=== PATIENT | male | born 1980 | race Caucasian/White ===

== ENCOUNTER 2020-09-06 10:15 | Outpatient (REF) | payer BC, SELFPAY ==
[2020-09-06 10:30] LABS: MANUAL DIFF FLAG NO
[2020-09-06 10:55] LABS: Basophils Absolute Auto 0.1 X10*3/uL (0.0-0.2); Basophils Percent Auto 0.7 % (0-2); Eosinophils Absolute Auto 0.2 X10*3/uL (0.0-0.4); Eosinophils Percent Auto 1.9 % (0-4); Hematocrit 42.6 % (42-52); Hemoglobin 14.6 g/dl (14.0-18.0); Imm Gran Abs Auto 0.08 X10*3/uL (0.00-0.03); Imm Gran Pct Auto 0.7 % (0.0-0.4); Lymphocytes Absolute Auto 2.8 X10*3/uL (1.2-4.9); Lymphocytes Percent Auto 24.1 % (20-40); Mean Corpuscular HGB Conc 34.3 g/dl (31.0-36.0); Mean Corpuscular Hemoglobin 32.4 pg (27.0-33.0); Mean Corpuscular Volume 94.7 fL (80-98); Mean Platelet Volume 10.2 fL (9.4-12.4); Monocytes Percent Auto 8.7 % (2-11); Neutrophils Absolute Auto 7.5 X10*3/uL (2.0-8.3); Neutrophils Percent Auto 63.9 % (45-73); Platelet Count 309 X10*3/uL (160-400); Red Cell Distribution Width 12.3 % (11.0-16.0); White Blood Count 11.7 X10*3/uL (4.8-10.8)
[2020-09-06 11:09] LABS: Glucose Urine UA NEG (NEG); Leukocyte Esterase Urine NEG (NEG); Nitrite Urine NEG (NEG); PH 5.5 (5.0-8.0); Specific Gravity - Urine >= 1.030 (1.005-1.025); Urine Blood NEG (NEG); Urine Ketones NEG (NEG); Urine Protein NEG (NEG-TRACE)
[2020-09-06 11:14] LABS: Appearance Urine CLEAR; Color Urine YELLOW
[2020-09-06 11:25] LABS: Alanine Aminotransferase 90 U/L (0-40); Albumin Level 4.6 g/dL (3.5-5.0); Alkaline Phosphatase 82 U/L (39-117); Anion Gap 14 (12-20); Aspartate Amino Transferase 41 U/L (5-37); Bilirubin Total 0.5 mg/dL (0.0-1.0); Blood Urea Nitrogen 17 mg/dL (9-16); Carbon Dioxide 27 mmol/L (22-29); Chloride 103 mmol/L (96-108); Cholesterol 262 mg/dL; Estimated Glomerular Filt Rate > 60; Glucose Fasting 94 mg/dL (60-99); HDL Cholesterol 48 mg/dL; LDL Cholesterol Calculated 165 mg/dl; Potassium 4.1 mmol/L (3.3-5.1); Sodium 140 mmol/L (135-145); Total Protein 7.6 g/dL (6.5-8.0); Triglycerides 247 mg/dL
== END 2020-09-06 10:16 | disposition home or self-care (01) ==
LOC: HO.LNP 10:15
PROVIDERS: Visit Provider Internal Medicine
DX: Z00.00 Encounter for general adult medical examination without abnormal findings (principal); E78.00 Pure hypercholesterolemia, unspecified
CPT/HCPCS: 80053; 80061; 81003; 85025

== ENCOUNTER 2020-10-14 13:54 | Outpatient (REF) | payer BC, SELFPAY ==
[2020-10-14 14:01] LABS: MANUAL DIFF FLAG NO
[2020-10-14 14:05] LABS: Basophils Absolute Auto 0.1 X10*3/uL (0.0-0.2); Basophils Percent Auto 0.7 % (0-2); Eosinophils Absolute Auto 0.3 X10*3/uL (0.0-0.4); Eosinophils Percent Auto 2.5 % (0-4); Hematocrit 41.9 % (42-52); Hemoglobin 14.2 g/dl (14.0-18.0); Imm Gran Abs Auto 0.05 X10*3/uL (0.00-0.03); Imm Gran Pct Auto 0.5 % (0.0-0.4); Lymphocytes Absolute Auto 2.8 X10*3/uL (1.2-4.9); Lymphocytes Percent Auto 26.9 % (20-40); Mean Corpuscular HGB Conc 33.9 g/dl (31.0-36.0); Mean Corpuscular Hemoglobin 32.5 pg (27.0-33.0); Mean Corpuscular Volume 95.9 fL (80-98); Mean Platelet Volume 10.3 fL (9.4-12.4); Monocytes Absolute Auto 1.1 X10*3/uL (0.1-1.2); Monocytes Percent Auto 10.6 % (2-11); Neutrophils Percent Auto 58.8 % (45-73); Platelet Count 289 X10*3/uL (160-400); Red Blood Count 4.37 X10*6/uL (4.60-5.80); Red Cell Distribution Width 12.2 % (11.0-16.0); White Blood Count 10.2 X10*3/uL (4.8-10.8)
== END 2020-10-14 13:55 | disposition home or self-care (01) ==
LOC: HO.LNP 13:54
PROVIDERS: Visit Provider Internal Medicine
DX: D72.829 Elevated white blood cell count, unspecified (principal)
CPT/HCPCS: 85025

== ENCOUNTER 2021-09-18 11:06 | Outpatient (REF) | payer BC, SELFPAY ==
[2021-09-18 11:10] LABS: MANUAL DIFF FLAG NO
[2021-09-18 11:48] LABS: Appearance Urine CLEAR; Color Urine YELLOW; Glucose Urine UA NEG (NEG); Leukocyte Esterase Urine NEG (NEG); Nitrite Urine NEG (NEG); PH 5.5 (5.0-8.0); Urine Blood NEG (NEG); Urine Ketones NEG (NEG); Urine Protein NEG (NEG-TRACE)
[2021-09-18 11:55] LABS: Basophils Absolute Auto 0.1 X10*3/uL (0.0-0.2); Basophils Percent Auto 0.8 % (0-2); Eosinophils Absolute Auto 0.2 X10*3/uL (0.0-0.4); Eosinophils Percent Auto 1.7 % (0-4); Hematocrit 44.9 % (42.0-52.0); Imm Gran Abs Auto 0.04 X10*3/uL (0.00-0.03); Imm Gran Pct Auto 0.3 % (0.0-0.4); Lymphocytes Absolute Auto 3.5 X10*3/uL (1.2-4.9); Lymphocytes Percent Auto 29.8 % (20-40); Mean Corpuscular HGB Conc 33.4 g/dl (31.0-36.0); Mean Corpuscular Hemoglobin 32.3 pg (27.0-33.0); Mean Corpuscular Volume 96.8 fL (80.0-98.0); Mean Platelet Volume 10.2 fL (9.4-12.4); Monocytes Percent Auto 8.7 % (2-11); Neutrophils Absolute Auto 6.9 x10*3/uL (2.0-8.3); Neutrophils Percent Auto 58.7 % (45-73); Platelet Count 329 X10*3/uL (160-400); Red Blood Count 4.64 X10*6/uL (4.60-5.80); Red Cell Distribution Width 12.6 % (11.0-16.0); White Blood Count 11.8 X10*3/uL (4.8-10.8)
[2021-09-18 12:20] LABS: PSA,Total (Free>4and<10) 0.37 ng/mL (0.00-4.00)
[2021-09-18 12:26] LABS: Alanine Aminotransferase 55 U/L (0-40); Albumin Level 4.6 g/dL (3.5-5.0); Alkaline Phosphatase 82 U/L (39-117); Anion Gap 16 (12-20); Aspartate Amino Transferase 26 U/L (5-37); Bilirubin Total 0.7 mg/dL (0.0-1.0); Blood Urea Nitrogen 15 mg/dL (9-16); Calcium 10.6 mg/dL (8.4-10.2); Carbon Dioxide 23 mmol/L (22-29); Chloride 103 mmol/L (96-108); Cholesterol 243 mg/dL; Estimated Glomerular Filt Rate > 60; Glucose Fasting 91 mg/dL (60-99); HDL Cholesterol 42 mg/dL; LDL Cholesterol Calculated 155 mg/dl; Potassium 4.4 mmol/L (3.3-5.1); Sodium 138 mmol/L (135-145); Total Protein 7.7 g/dL (6.5-8.0); Triglycerides 233 mg/dL
== END 2021-09-18 11:07 | disposition home or self-care (01) ==
LOC: HO.LNP 11:06
PROVIDERS: PCP Internal Medicine; Visit Provider Internal Medicine
DX: Z00.00 Encounter for general adult medical examination without abnormal findings (principal); E78.00 Pure hypercholesterolemia, unspecified; D72.829 Elevated white blood cell count, unspecified; Z12.5 Encounter for screening for malignant neoplasm of prostate
CPT/HCPCS: 80053; 80061; 81003; 84153; 85025

== ENCOUNTER 2021-09-25 15:34 | Outpatient (REF) | payer BC, SELFPAY ==
[2021-09-25 15:45] LABS: Calcium 9.9 mg/dL (8.4-10.2)
== END 2021-09-25 15:35 | disposition home or self-care (01) ==
LOC: HO.LNP 15:34
PROVIDERS: Visit Provider Internal Medicine
DX: E83.52 Hypercalcemia (principal)
CPT/HCPCS: 82310

== ENCOUNTER 2022-09-25 10:57 | Outpatient (REF) | payer BC, SELFPAY ==
[2022-09-25 11:01] LABS: MANUAL DIFF FLAG NO
[2022-09-25 11:16] LABS: Basophils Absolute Auto 0.1 X10*3/uL (0.0-0.2); Basophils Percent Auto 0.8 % (0-2); Eosinophils Absolute Auto 0.2 X10*3/uL (0.0-0.4); Eosinophils Percent Auto 2.2 % (0-4); Hematocrit 42.7 % (42.0-52.0); Hemoglobin 14.6 g/dl (14.0-18.0); Imm Gran Abs Auto 0.04 X10*3/uL (0.00-0.03); Imm Gran Pct Auto 0.4 % (0.0-0.4); Lymphocytes Absolute Auto 3.3 X10*3/uL (1.2-4.9); Lymphocytes Percent Auto 34.2 % (20-40); Mean Corpuscular HGB Conc 34.2 g/dl (31.0-36.0); Mean Corpuscular Hemoglobin 31.4 pg (27.0-33.0); Mean Corpuscular Volume 91.8 fL (80.0-98.0); Mean Platelet Volume 9.9 fL (9.4-12.4); Monocytes Percent Auto 10.6 % (2-11); Neutrophils Percent Auto 51.8 % (45-73); Platelet Count 316 X10*3/uL (160-400); Red Blood Count 4.65 X10*6/uL (4.60-5.80); Red Cell Distribution Width 12.3 % (11.0-16.0); White Blood Count 9.6 X10*3/uL (4.8-10.8)
[2022-09-25 11:17] LABS: Appearance Urine Clear; Color Urine Yellow; Glucose Urine UA Negative (Negative); Leukocyte Esterase Urine Negative (Negative); Nitrite Urine Negative (Negative); PH 5.5 (5.0-9.0); Urine Blood Negative (Negative); Urine Ketones Negative (Negative); Urine Protein Negative (Neg-Trace)
[2022-09-25 11:23] LABS: Bacteria Urine None Seen (None Seen); Hyaline Casts Urine 0-2 /LPF (0-2); RBC Urine 0-2 /HPF (0-2); Squamous Epithelial Cell Urine 0-2 /HPF (0-2); WBC Urine 0-5 /HPF (0-5)
[2022-09-25 12:07] LABS: Alanine Aminotransferase 101 U/L (0-40); Albumin Level 4.6 g/dL (3.5-5.0); Alkaline Phosphatase 87 U/L (39-117); Anion Gap 14 (12-20); Aspartate Amino Transferase 48 U/L (5-37); Bilirubin Total 0.7 mg/dL (0.0-1.0); Blood Urea Nitrogen 13 mg/dL (9-16); Calcium 9.8 mg/dL (8.4-10.2); Carbon Dioxide 28 mmol/L (22-29); Chloride 102 mmol/L (96-108); Cholesterol 265 mg/dL; Estimated Glomerular Filt Rate > 60; Glucose Fasting 97 mg/dL (60-99); HDL Cholesterol 42 mg/dL; LDL Cholesterol Calculated 173 mg/dl; Potassium 4.3 mmol/L (3.3-5.1); Sodium 140 mmol/L (135-145); Total Protein 7.5 g/dL (6.5-8.0); Triglycerides 254 mg/dL
[2022-09-25 12:22] LABS: PSA,Total (Free>4and<10) 0.35 ng/mL (0.00-4.00)
== END 2022-09-25 10:58 | disposition home or self-care (01) ==
LOC: HO.LNP 10:57
PROVIDERS: Visit Provider Internal Medicine
DX: Z00.00 Encounter for general adult medical examination without abnormal findings (principal); Z12.5 Encounter for screening for malignant neoplasm of prostate; E78.00 Pure hypercholesterolemia, unspecified; D72.829 Elevated white blood cell count, unspecified
CPT/HCPCS: 80053; 80061; 81001; 84153; 85025

== ENCOUNTER 2023-04-15 10:57 | Outpatient (REF) | payer BC, SELFPAY ==
[2023-04-15 12:36] LABS: Alanine Aminotransferase 43 U/L (0-40); Albumin Level 4.5 g/dL (3.5-5.0); Alkaline Phosphatase 86 U/L (39-117); Aspartate Amino Transferase 22 U/L (5-37); Bilirubin Direct 0.2 mg/dL (0.0-0.5); Bilirubin Total 0.6 mg/dL (0.0-1.0); Cholesterol 242 mg/dL (<200); HDL Cholesterol 43 mg/dL (>40); LDL Cholesterol Calculated 155 mg/dL (<100); Total Protein 7.5 g/dL (6.5-8.0); Triglycerides 223 mg/dL (<150)
== END 2023-04-15 10:58 | disposition home or self-care (01) ==
LOC: HO.LNP 10:57
PROVIDERS: Visit Provider Internal Medicine
DX: E78.00 Pure hypercholesterolemia, unspecified (principal); R79.89 Other specified abnormal findings of blood chemistry
CPT/HCPCS: 80061; 80076

== ENCOUNTER 2023-09-27 11:09 | Outpatient (REF) | payer BC, SELFPAY ==
[2023-09-27 11:18] LABS: MANUAL DIFF FLAG NO
[2023-09-27 12:16] LABS: Basophils Absolute Auto 0.1 X10*3/uL (0.0-0.2); Basophils Percent Auto 0.9 % (0-2); Eosinophils Absolute Auto 0.2 X10*3/uL (0.0-0.4); Eosinophils Percent Auto 2.3 % (0-4); Hematocrit 42.4 % (42.0-52.0); Hemoglobin 14.4 g/dl (14.0-18.0); Imm Gran Abs Auto 0.03 X10*3/uL (0.00-0.03); Imm Gran Pct Auto 0.3 % (0.0-0.4); Lymphocytes Absolute Auto 3.8 X10*3/uL (1.2-4.9); Lymphocytes Percent Auto 37.5 % (20-40); Mean Corpuscular Hemoglobin 32.4 pg (27.0-33.0); Mean Corpuscular Volume 95.3 fL (80.0-98.0); Mean Platelet Volume 9.8 fL (9.4-12.4); Monocytes Percent Auto 9.7 % (2-11); Neutrophils Percent Auto 49.3 % (45-73); Platelet Count 292 X10*3/uL (160-400); Red Blood Count 4.45 X10*6/uL (4.60-5.80); Red Cell Distribution Width 12.2 % (11.0-16.0)
[2023-09-27 12:18] LABS: Appearance Urine Clear; Color Urine Yellow; Glucose Urine UA Negative (Negative); Leukocyte Esterase Urine Negative (Negative); Nitrite Urine Negative (Negative); Specific Gravity - Urine 1.025 (1.005-1.025); Urine Blood Negative (Negative); Urine Ketones Negative (Negative); Urine Protein Negative (Neg-Trace)
[2023-09-27 12:22] LABS: Bacteria Urine None Seen (None Seen); Hyaline Casts Urine 0-2 /LPF (0-2); RBC Urine 0-2 /HPF (0-2); Squamous Epithelial Cell Urine 0-2 /HPF (0-2); WBC Urine 0-5 /HPF (0-5)
[2023-09-27 12:30] LABS: Alanine Aminotransferase 48 U/L (0-40); Albumin Level 4.4 g/dL (3.5-5.0); Alkaline Phosphatase 79 U/L (39-117); Anion Gap 10 (12-20); Aspartate Amino Transferase 29 U/L (5-37); Bilirubin Total 0.6 mg/dL (0.0-1.0); Blood Urea Nitrogen 13 mg/dL (9-16); Calcium 9.5 mg/dL (8.4-10.2); Carbon Dioxide 27 mmol/L (22-29); Chloride 105 mmol/L (96-108); Cholesterol 242 mg/dL (<200); Estimated Glomerular Filt Rate > 60; Glucose Fasting 84 mg/dL (60-99); HDL Cholesterol 41 mg/dL (>40); LDL Cholesterol Calculated 165 mg/dL (<100); Potassium 4.2 mmol/L (3.3-5.1); Sodium 138 mmol/L (135-145); Total Protein 7.5 g/dL (6.5-8.0); Triglycerides 183 mg/dL (<150)
[2023-09-27 12:47] LABS: PSA,Total (Free>4and<10) 0.35 ng/mL (0.00-4.00)
== END 2023-09-27 11:10 | disposition home or self-care (01) ==
LOC: HO.LNP 11:09
PROVIDERS: Visit Provider Internal Medicine
DX: Z00.00 Encounter for general adult medical examination without abnormal findings (principal); Z12.5 Encounter for screening for malignant neoplasm of prostate; E78.00 Pure hypercholesterolemia, unspecified; D72.829 Elevated white blood cell count, unspecified
CPT/HCPCS: 80053; 80061; 81001; 84153; 85025

== ENCOUNTER 2024-04-28 15:55 | Outpatient (REF) | payer BC, SELFPAY ==
[2024-04-28 21:22] LABS: Albumin Level 4.6 g/dL (3.5-5.0); Alkaline Phosphatase 79 U/L (39-117); Bilirubin Direct 0.2 mg/dL (0.0-0.5); Bilirubin Total 0.6 mg/dL (0.0-1.0); Cholesterol 215 mg/dL (<200); HDL Cholesterol 49 mg/dL (>40); LDL Cholesterol Calculated 130 mg/dL (<100); Total Protein 7.6 g/dL (6.5-8.0); Triglycerides 181 mg/dL (<150)
[2024-04-28 22:42] LABS: Alanine Aminotransferase 54 U/L (0-40); Aspartate Amino Transferase 36 U/L (5-37)
== END 2024-04-28 15:56 | disposition home or self-care (01) ==
LOC: HO.LNP 15:55
PROVIDERS: Visit Provider Internal Medicine
DX: E78.00 Pure hypercholesterolemia, unspecified (principal)
CPT/HCPCS: 80061; 80076

== ENCOUNTER 2024-10-23 09:37 | Outpatient (REF) | payer BC, SELFPAY ==
[2024-10-23 09:43] LABS: MANUAL DIFF FLAG NO
[2024-10-23 10:07] LABS: Basophils Absolute Auto 0.1 X10*3/uL (0.0-0.2); Basophils Percent Auto 0.9 % (0-2); Eosinophils Absolute Auto 0.2 X10*3/uL (0.0-0.4); Eosinophils Percent Auto 2.2 % (0-4); Imm Gran Abs Auto 0.03 X10*3/uL (0.00-0.03); Imm Gran Pct Auto 0.3 % (0.0-0.4); Lymphocytes Absolute Auto 3.2 X10*3/uL (1.2-4.9); Lymphocytes Percent Auto 35.5 % (20-40); Mean Corpuscular Volume 91.5 fL (80.0-98.0); Mean Platelet Volume 9.6 fL (9.4-12.4); Monocytes Absolute Auto 0.9 X10*3/uL (0.1-1.2); Monocytes Percent Auto 9.6 % (2-11); Neutrophils Absolute Auto 4.6 x10*3/uL (2.0-8.3); Neutrophils Percent Auto 51.5 % (45-73); Platelet Count 303 X10*3/uL (160-400); Red Blood Count 4.37 X10*6/uL (4.60-5.80); Red Cell Distribution Width 12.3 % (11.0-16.0)
[2024-10-23 10:35] LABS: Alanine Aminotransferase 64 U/L (0-40); Albumin Level 4.5 g/dL (3.5-5.0); Alkaline Phosphatase 69 U/L (39-117); Anion Gap 11 (12-20); Aspartate Amino Transferase 38 U/L (5-37); Bilirubin Total 0.7 mg/dL (0.0-1.0); Blood Urea Nitrogen 16 mg/dL (9-16); Calcium 9.7 mg/dL (8.4-10.2); Carbon Dioxide 26 mmol/L (22-29); Chloride 105 mmol/L (96-108); Cholesterol 245 mg/dL (<200); Estimated Glomerular Filt Rate > 60; Glucose Fasting 91 mg/dL (60-99); HDL Cholesterol 47 mg/dL (>40); LDL Cholesterol Calculated 172 mg/dL (<100); Sodium 138 mmol/L (135-145); Total Protein 7.6 g/dL (6.5-8.0); Triglycerides 130 mg/dL (<150)
[2024-10-23 10:38] LABS: PSA,Total (Free>4and<10) 0.46 ng/mL (0.00-4.00)
[2024-10-23 10:54] LABS: Appearance Urine Clear; Color Urine Yellow; Glucose Urine UA Negative (Negative); Leukocyte Esterase Urine Negative (Negative); Nitrite Urine Negative (Negative); PH 5.5 (5.0-9.0); Urine Blood Negative (Negative); Urine Ketones Negative (Negative); Urine Protein Negative (Neg-Trace)
[2024-10-23 11:05] LABS: Bacteria Urine None Seen (None Seen); Hyaline Casts Urine 0-2 /LPF (0-2); RBC Urine 0-2 /HPF (0-2); Squamous Epithelial Cell Urine 0-2 /HPF (0-2); WBC Urine 0-5 /HPF (0-5)
== END 2024-10-23 09:38 | disposition home or self-care (01) ==
LOC: HO.LNP 09:37
PROVIDERS: Visit Provider Internal Medicine
DX: Z00.00 Encounter for general adult medical examination without abnormal findings (principal); E78.00 Pure hypercholesterolemia, unspecified; D72.829 Elevated white blood cell count, unspecified; E83.52 Hypercalcemia; Z12.5 Encounter for screening for malignant neoplasm of prostate
CPT/HCPCS: 80053; 80061; 81001; 84153; 85025

== ENCOUNTER 2024-12-24 15:00 | Outpatient (REF) | payer BC, SELFPAY ==
--- OUTSIDE RECORDS SUMMARY | 2024-12-24 10:30 | XMS_ITS ---
Author Organization Bhaskar Lennon MD Address [address] [place], [place] [id number] Care Team Providers Care Section Maintainer Name Role Phone Bhaskar Lennon Primary Care Provider [phone] Allergies No Known Allergies Results Component Value Reference Range Notes TSH reflex Free T4 (Not yet reviewed by provider) Interpretation: Performing Lab:[facility], [address] [place] [phone] Notes/Report: TSH reflex Free T4 1.57 0.32-4.0 uIU/mL Occult Blood, Stool, Guaiac Reviewed date:12/24/2024 03:31:08 PM Interpretation:Negative Performing Lab: Notes/Report: Negative Occult Blood, Stool, Guaiac Neg REASON FOR VISIT annual visit Social History [...] Location Date Provider Diagnosis Bhaskar Lennon MD [address] [place] [address] [place] [phone] 12/24/2024 Bhaskar Lennon Annual physical exam Z00.00 ; Hair loss L65.9 ; Pure hypercholesterolemia E78.00 ; Colon cancer screening Z12.11 and Depression screening Z13.31 Assessments Encounter Date Diagnosis (ICD Code) Assessment Notes Treatment Notes Treatment Clinical Notes Section Notes 12/24/2024 Annual physical exam (ICD-10 - Z00.00) labs reviewed and discussed with patient, order given to the patient to go to [facility] [place] 12/24/2024 Hair loss (ICD-10 - L65.9) pending labs 12/24/2024 Pure hypercholesterolemia (ICD-10 - E78.00) stable, will continue current regiment 12/24/2024 Colon cancer screeni ng (ICD-10 - Z12.11) guaiac negative 12/24/2024 Depression screening (ICD-10 - Z13.31) negative screen Plan Of Treatment Treatment Notes Assessment Notes Annual physical exam labs reviewed and d iscussed with patient, order given to the patient to go to [facility] [place] Hair loss pending labs Pure hypercholesterolemia stable, will c ontinue current regiment Colon cancer screening guaiac negative Depression screening negative screen Pending Test Test Name Order Date TSH reflex Free T4 12/24/2024 Future Test Test Name Order Date Lipid Panel 06/25/2025 Next Appt Details Follow Up: 6 Months, Reason: Provider Name:Bhaskar moise, 06/22/2025 07:00:00 AM, [address] [place] [address], [address], [phone], Provider Name:Bhaskar moise, 06/29/2025 02:00:00 PM, [address] [place] [address], [address], [phone], Provider Name:Bhaskar Ruth ier, 12/23/2025 07:15:00 AM, [address], [address], [place], [place], [phone], Provider Name:Bhaskar Ruth ier, 12/30/2025 02:30:00 PM, [address], [address], [place], [place], [phone], Progress Notes * Willis MARISCALinDOB: 1 (44 yo M)Acc No.[id number]:12/24/2024 Progress Notes Patient: Layo BELL Provider: Heladio Lennon MD :1980 A ge:44 Y S ex:Male Date:12/24/2024 Address:[address] [place], [place] [id number] Subjective: * Chief Complaints: * 1 . Annual visit. * HPI: D epression Screening: PHQ-9 L [...] d enies. H eadache?denies. * Medical History: M edical History Verified. * Family History: F ather: alive 70 yrs. M other: 55 yrs. mother, Denies mental health/substance abuse family history, Denies mental health/substance abuse family history, Denies mental health/substance abuse family history, No pertinent family medical history. * Social History: T obacco Use: T obacco Use/Smoking P atient is a n onsmoker, A dditional Findings: [...] * Medications: N one * Allergies: N .K.D.A. Objective: * Vitals: H t: 69.50, Wt: [...] Auto 0.000 0.0-0.012 - X10*3/uL L ab:Comprehensive [place]. Panel Fast (Order Date - 10/23/2024) (Collection [...] mg/dL Urine Blood Negative Negative - Specific [place] - Urine 1.020 1.005-1.025 - Urine Protein [...] Counseling: C are goal follow-up plan: C ounseling for abnormal BMI provided?Yes, A jhonny Normal BMI Follow-up G heidi encouragement to exercise. * Follow Up: 6 Months * * The named appointment provid er may or may not be the originator of this progress note, and it is not deemed complete until electronically signed by the appointment provider. Sign off status: Pending * Provider: Heladio Lennon MD Date: 0 12/24/2024 Generated for Santosh chaves/Charan/eTransmitting on: 0 12/24/2024 06:14 PM EDT History and Physical Notes * HPI (History [...]
[2024-12-24 17:13] LABS: TSH reflex Free T4 1.57 uIU/mL (0.32-4.0)
== END 2024-12-24 15:01 | disposition home or self-care (01) ==
LOC: HO.LAB 15:00
PROVIDERS: PCP Internal Medicine; Visit Provider Internal Medicine
DX: L65.9 Nonscarring hair loss, unspecified (principal)
CPT/HCPCS: 36415; 84443

== ENCOUNTER 2025-06-22 10:44 | Outpatient (REF) | payer BC, SELFPAY ==
--- OUTSIDE RECORDS SUMMARY | 2024-04-28 02:00 | XMS_ITS ---
Author Organization Bhaskar Lennon MD Address [address] [place], [place] [id number] Care Team Providers Care Production Control Analyst Name Role Phone Bhaskar Lennon Primary Care Provider [phone] Results Component Value Reference Range Notes Liver Panel Reviewed date:04/29/2024 05:36:28 PM Interpretation: Performing Lab:[facility], [address] [place] [phone] Notes/Report: Bilirubin Total 0.6 0.0-1.0 mg/dL Bilirubin Direct 0.2 0.0-0.5 mg/dL Aspartate Amino Transferase 36 5-37 U/L Alanine Aminotransferase 54 0-40 U/L Total Protein 7.6 6.5-8.0 g/dL Albumin Level 4.6 3.5-5.0 g/dL Alkaline Phosphatase 79 39-117 U/L Lipid Panel Reviewed date:04/29/2024 05:38:02 PM Interpretation: Performing Lab:[facility], [address] [place] [phone] Notes/Report: Triglycerides 181 <150 mg/dL Desirable Triglyceride: less than 150 mg/dL Borderline High Triglyceride 150-199 mg/dL High Triglyceride: 200-499 mg/dL Very High Triglyceride: greater than or equal to 5OO mg/dL Cholesterol 215 <200 mg/dL Desirable Cholesterol: less than 200 mg/dL Borderline High Cholesterol: 200-239 mg/dL High Cholesterol: greater than 239 mg/dL LDL Cholesterol Calculated 130 <100 mg/dL Desirable LDL: less than 100 mg/dL Near Optimal/Above Optimal LDL: 110-129 mg/dL Borderline High LDL: 130-159 mg/dL High LDL: 160-189 mg/dL Very High LDL: greater than or equal to 190 mg/dL HDL Cholesterol 49 >40 mg/dL Desirable HDL: greater than 40 mg/dL Note: This HDL assay may give artificially low results in patients with liver disease. REASON FOR VISIT FASTING LIPID AND LIVER PANEL Vital Signs Height 69.50 in 04/28/2024 Encounters Encounter Location Date Provider Diagnosis Bhaskar Lennon MD [address] [place] [address] [place] [phone] 04/28/2024 Bhaskar Lennon Pure hypercholestero lemia E78.00 Assessments Encounter Date Diagnosis (ICD Code) Assessment Notes Treatment Notes Treatment Clinical Notes Section Notes 04/28/2024 Pure hypercholesterolemia (ICD-10 - E78.00) Plan Of Treatment Next Appt Details Provider Name:Bhaskar moise, 06/29/2025 02:00:00 PM, [address] [place] [address], [address] [place] [address], [phone], Provider Name:Bhaskar moise, 12/23/2025 07:15:00 AM, [address] [place] [address], [address] [place] [address], [phone], Provider Name:Bhaskar moise, 12/30/2025 02:30:00 PM, [address] [place] [address], [address], [phone], Progress Notes * DAVEY NayeliOB: 1 (45 yo M)Acc No.[id number]:04/28/2024 Progress Note Patient: aLyo BELL Provider: Heladio Lennon MD :1980 A ge:43 Y S ex:Male Date:04/28/2024 Address:[address] [place], [place] [id number] Subjective: * Chief Complaints: * 1 . FASTING LIPID AND LIVER PANEL. * Medical History: Objective: * Vitals: H t: 69.50. Assessment: * Assessment: 1. P ure hypercholesterolemia - E78.00 (Primary) Plan: * Treatment: * Procedure Codes: 3 6415 VENIPUNCT, ROUTINE* * * The named appointment provid er may or may not be the originator of this progress note, and it is not deemed complete until electronically signed by the appointment provider. Sign off status: Pending * Provider: Heladio Lennon MD Date: 1 Generated for Santosh chaves/Charan/Rosana on: 08/23/2024 12:04 PM EST
--- OUTSIDE RECORDS SUMMARY | 2024-05-05 08:45 | XMS_ITS ---
Author Organization Bhaskar Lennon MD Address [address] [place] [phone] Care Team Providers Care Hospital Intern Name Role Phone Bhaskar Lennon Primary Care Provider Allergies No Known Allergies REASON FOR VISIT 6 MO F/U Vital Signs Blood pressure systolic 118 mm Hg 05/05/20 24 Blood pressure diastolic 80 mm Hg 024 Height 69.50 in 05/05/2024 Weight 213 lbs 05/05/2024 BMI 31.00 kg/m2 05/05/2024 weight is down 13 pounds [facility] 4-29-24 Encounters Encounter Location Date Provider Diagnosis Bhaskar Lennon MD [address] [place] [phone] 05/05/2024 Bhaskar Lennon Pure hypercholestero lemia E78.00 and Elevated LFTs R79.89 Assessments Encounter Date Diagnosis (ICD Code) Assessment Notes Treatment Notes Treatment Clinical Notes Section Notes 05/05/2024 Pure hypercholesterolemia (ICD-10 - E78.00) doing great on diet. lipids came down nicely, will continue to monitor 05/05/2024 Elevated LFTs (ICD-1 0 - R79.89) is just related to his weight and has been there, will continue to monitor 05/05/2024 Other Total time spent on the date of the encounter is 35 minutes including both face to face time spent and time spent reviewing documentation , and counseling the patient. Plan Of Treatment Treatment Notes Assessment Notes Pure hypercholesterolemia doing great on diet. lipids came down nicely, will continue to monitor Elevated LFTs is just related to h is weight and has been there, will continue to monitor Other Total time spent on the date of the encounter is 35 minutes including both face to face time spent and time spent reviewing documentation, and counseling the patient. Next Appt Details Provider Name:Bhaskar Ruth ier, 06/29/2025 02:00:00 PM, [address] [place] [address], [address], [place], [place], [phone], Provider Name:Bhaskar Ruth ier, 12/23/2025 07:15:00 AM, [address] [place] [address], [address], [place], [place], [phone], Provider Name:Bhaskar Ruth ier, 12/30/2025 02:30:00 PM, [address] [place] [address], [address], [place], [place], [phone], Progress Notes * Willis MARISCALWolfOB: 1 (43 yo M)Acc No.[id number]:05/05/2024 Progress Notes Patient: Layo Kessler Provider: Heladio Lennon MD :1980 A ge:43 Y S ex:Male Date:05/05/2024 Address:[address] [place], [place] [phone] Subjective: * Chief Complaints: * 6 MO F/U * HPI: S ymptom(s): patient is a 43 yo male here for 6 month follow up visit, labs reviewed and discussed with patient. * ROS: G eneral/Constitutional: Denies C hills. D enies F atigue. D enies F ever. D enies H eadache. E NT: Patient denies d ecreased sense of smell , any loss of taste , sore throat. D enies S ore throat. R espiratory: Denies C ough. D enies S hortness of breath at rest. D enies S hortness of breath with exertion. G astrointestinal: Denies D iarrhea. D enies N ausea. M usculoskeletal: Patient denies m uscle aches. P eripheral Vascular: Patient denies r ed and blue toes. * Medical History: * Surgical History: * Hospitalization/Major Diagno stic Procedure: * Medications: N one * Allergies: N .K.D.A.yes[Allergies Verified] Objective: * Vitals: H t: 69.50, Wt:213, BMI:31.00, BP:118/80 weight is down 13 pounds since 10-28-23. * P ast Orders: L ab:Liver Panel (Order Date - 04/28/2024) (Collection Date - 04/28/2024) Value Reference Range Bilirubin Total 0.6 0.0-1.0 - mg/dL Bilirubin Direct 0.2 0.0-0.5 - mg/dL Aspartate Amino Transferase 36 5-37 - U/L Alanine Aminotransferase 54 H 0-40 - U/L Total Protein 7.6 6.5-8.0 - g/dL Albumin Level 4.6 3.5-5.0 - g/dL Alkaline Phosphatase 79 39-117 - U/L L ab:Lipid Panel (Order Date - 04/28/2024) (Collection Date - 04/28/2024) Value Reference Range Triglycerides 181 H <150 - mg/dL Cholesterol 215 H <200 - mg/dL LDL Cholesterol Calculated 130 H <100 - mg/dL HDL Cholesterol 49 >40 - mg/dL * Examination: G eneral Examination: GENERAL APPEARANCE: a lert, well hydrated, in no distress.? HEAD: n ormocephalic. SKIN: g ood turgor. HEART: n o murmurs, rubs, gallops , regular rate and rhythm. LUNGS: n o wheezes, rales, rhonchi , good air movement , clear to auscultation bilaterally. ABDOMEN: s oft, nontender, nondistended , no organomegaly.? Assessment: * Assessment: 1. P ure hypercholesterolemia - E78.00 (Primary) 2 . E levated LFTs - R79.89 Plan: * Treatment: 2. E levated LFTs Notes: is just related to his weight and has been there, will continue to monitor 3. O thers Notes: Total time spent on the date of the encounter is 35 minutes including both face to face time spent and time spent reviewing documentation, and counseling the patient. * Procedure Codes: * * Sign off status: Completed true * Provider: Heladio Lennon MD Date: 07/05/2023 Generated for Santosh chaves/Charan/Kelseysmitting on: 08/23/2024 12:03 PM EST History and Physical Notes * HPI (History of Present Illness) Category Sub-Category Detail Notes Category Not es Symptom(s) patient is a 43 yo male here for 6 month follow up visit, labs reviewed and discussed with patient Examination Category Sub-Category Detail Notes Category Not es General Examination GENERAL APPEARANCE: alert, w ell hydrated, in no distress HEAD: normocephalic HEART: no murmurs, rubs, ga llops , regular rate and rhythm LUNGS: no wheezes, rales, r honchi , good air movement , clear to auscultation bilaterally ABDOMEN: soft, nontender, non distended , no organomegaly SKIN: good turgor
--- OUTSIDE RECORDS SUMMARY | 2024-10-23 02:15 | XMS_ITS ---
Author Organization Bhaskar Lennon MD Address [address] [place], [place] [phone] Care Team Providers Care [employer] Team Member Name Role Phone Bhaskar Lennon Primary Care Provider Results Component Value Reference Range Notes Complete Blood Count Auto Di ff Reviewed date:10/23/2024 04:02:07 PM Interpretation: Performing Lab:[facility], [address] [place] [phone] Notes/Report: White Blood Count 9.0 4.8-10.8 X10*3/uL Red Blood Count 4.37 4.60-5.80 X10*6/uL Hemoglobin 14.0 14.0-18.0 g/dl Hematocrit 40.0 42.0-52.0 % Mean Corpuscular Volume 91.5 80.0-98.0 fL Mean Corpuscular Hemoglobin 32.0 27.0-33.0 pg Mean Corpuscular HGB Conc 35.0 31.0-36.0 g/dl Red Cell Distribution Width 12.3 11.0-16.0 % Platelet Count 303 160-400 X10*3/uL Mean Platelet Volume 9.6 9.4-12.4 fL Neutrophils Percent Auto 51.5 45-73 % Imm Gran Pct Auto 0.3 0.0-0.4 % Lymphocytes Percent Auto 35.5 20-40 % Monocytes Percent Auto 9.6 2-11 % Eosinophils Percent Auto 2.2 0-4 % Basophils Percent Auto 0.9 0-2 % NRBC Pct Auto 0.0 0.0-0.2 /100WBC Neutrophils Absolute Auto 4.6 2.0-8.3 x10*3/u L Imm Gran Abs Auto 0.03 0.00-0.03 X10*3/uL Lymphocytes Absolute Auto 3.2 1.2-4.9 X10*3/u L Monocytes Absolute Auto 0.9 0.1-1.2 X10*3/uL Eosinophils Absolute Auto 0.2 0.0-0.4 X10*3/u L Basophils Absolute Auto 0.1 0.0-0.2 X10*3/uL NRBC Abs Auto 0.000 0.0-0.012 X10*3/uL Comprehensive [place]. Panel Fa st Reviewed date:10/23/2024 03:53:53 PM Interpretation: Performing Lab:[facility], [address] [place] [phone] Notes/Report: Sodium 138 135-145 mmol/L Potassium 4.0 3.3-5.1 mmol/L Chloride 105 96-108 mmol/L Carbon Dioxide 26 22-29 mmol/L Anion Gap 11 12-20 Blood Urea Nitrogen 16 9-16 mg/dL Creatinine 0.79 0.5-1.4 mg/dL Estimated Glomerular Filt Rate > 60 Chronic Kidney Disease: Estimated GFR < 60 mL/min/1.73m2 Severe Kidney Disease: Estimated GFR < 15 mL/min/1.73m2 Glucose Fasting 91 60-99 mg/dL Calcium 9.7 8.4-10.2 mg/dL Bilirubin Total 0.7 0.0-1.0 mg/dL Aspartate Amino Transferase 38 5-37 U/L Alanine Aminotransferase 64 0-40 U/L Total Protein 7.6 6.5-8.0 g/dL Albumin Level 4.5 3.5-5.0 g/dL Alkaline Phosphatase 69 39-117 U/L Lipid Panel Reviewed date:10/23/2024 11:28:48 AM Interpretation: Performing Lab:[facility], [address] [place] [phone] Notes/Report: Triglycerides 130 <150 mg/dL Desirable Triglyceride: less than 150 mg/dL Borderline High Triglyceride 150-199 mg/dL High Triglyceride: 200-499 mg/dL Very High Triglyceride: greater than or equal to 5OO mg/dL Cholesterol 245 <200 mg/dL Desirable Cholesterol: less than 200 mg/dL Borderline High Cholesterol: 200-239 mg/dL High Cholesterol: greater than 239 mg/dL LDL Cholesterol Calculated 172 <100 mg/dL Desirable LDL: less than 100 mg/dL Near Optimal/Above Optimal LDL: 110-129 mg/dL Borderline High LDL: 130-159 mg/dL High LDL: 160-189 mg/dL Very High LDL: greater than or equal to 190 mg/dL HDL Cholesterol 47 >40 mg/dL Desirable HDL: greater than 40 mg/dL Note: This HDL assay may give artificially low results in patients with liver disease. PSA,Total (Free>4and<10) Reviewed date:10/23/2024 11:28:34 AM Interpretation: Performing Lab:[facility], [address] [place] [phone] Notes/Report: PSA,Total (Free>4and<10) 0.46 0.00-4.00 ng/mL A Free PSA was not performed: The percentage of Free PSA can be used to enhance the differentiation of prostate cancer from benign prostatic disease in subjects whose PSA levels are between 4.0 and 10.0 ng/mL. For subjects whose PSA levels are below 4.0 or above 10.0 ng/mL, the risk of prostate cancer is determined on the basis of the PSA alone. Therefore the % Free PSA is recommended only for those subjects whose PSA levels are between 4.0 and 10.0 ng/mL. PSA methodology: Grewal Alinity i Chemiluminescent Microparticle Immunoassay (CMIA) UA ClnCatch+Micro w/rflx Cul t Reviewed date:10/23/2024 03:36:27 PM Interpretation: Performing Lab:[facility], [address] [place] [phone] Notes/Report: Urine, Clean Catch Color Urine Yellow Appearance Urine Clear PH 5.5 5.0-9.0 Glucose Urine UA Negative Negative mg/dL Urine Blood Negative Negative Specific [place] - Urine 1.020 1.005-1.025 Urine Protein Negative Neg-Trace mg/dL Urine Ketones Negative Negative mg/dL Nitrite Urine Negative Negative Leukocyte Esterase Urine Negative Negative RBC Urine 0-2 0-2 /HPF WBC Urine 0-5 0-5 /HPF Squamous Epithelial Cell Urine 0-2 0-2 /HPF Bacteria Urine None Seen None Seen Hyaline Casts Urine 0-2 0-2 /LPF REASON FOR VISIT FASTING LABS Encounters Encounter Location Date Provider Diagnosis Bhaskar Lennon MD [address] [place] [phone] 10/23/2024 Bhaskar Lennon Blood tests for rout ine general physical examination Z00.00 ; Pure hypercholesterolemia E78.00 ; Leukocytosis, unspecified type D72.829 and Hypercalcemia E83.52 Assessments Encounter Date Diagnosis (ICD Code) Assessment Notes Treatment Notes Treatment Clinical Notes Section Notes 10/23/2024 [address] tests [address] ine general physical examination (ICD-10 - Z00.00) 10/23/2024 Pure hypercholesterolemia (ICD-10 - E78.00) 10/23/2024 Leukocytosis, unspecified type (ICD-10 - D72.829) 10/23/2024 Hypercalcemia (ICD-1 0 - E83.52) Plan Of Treatment Next Appt Details Provider Name:Bhaskar moise, 06/29/2025 02:00:00 PM, [address] [place] [address], [address] [place] [address], [phone], Provider Name:Bhaskar moise, 12/23/2025 07:15:00 AM, [address] [place] [address], [address], [phone], Provider Name:Bhaskar moise, 12/30/2025 02:30:00 PM, [address] [place] [address], [address], [phone], Progress Notes * Willis MARISCALinDOB: 1 (45 yo M)Acc No.[id number]:10/23/2024 Progress Note Patient: Layo BELL Provider: Heladio Lennon MD :1980 A ge:44 Y S ex:Male Date:10/23/2024 Address:[address] [place], [place] [id number] Subjective: * Chief Complaints: * 1 . FASTING LABS. * Medical History: Objective: * Vitals: Assessment: * Assessment: 1. B lood tests for routine general physical examination - Z00.00 (Primary) 2 .?Pure hypercholesterolemia - E78.00 3 . L eukocytosis, unspecified type - D72.829 4 . H ypercalcemia - E83.52 Plan: * Treatment: 2. P ure hypercholesterolemia L AB: Complete Blood Count Auto Diff (Collection Date & Time - 10/23/2024 07:15 AM) L AB: Comprehensive [place]. Panel Fast (Collection Date & Time - 10/23/2024 07:15 AM) L AB: Lipid Panel (Collection Date & Time - 10/23/2024 07:15 AM) L AB: PSA,Total (Free>4and<10) (Collection Date & Time - 10/23/2024 07:15 AM) L AB: UA ClnCatch+Micro w/rflx Cult (Collection Date & Time - 10/23/2024 07:15 AM) 3. L eukocytosis, unspecified type L AB: Complete Blood Count Auto Diff (Collection Date & Time - 10/23/2024 07:15 AM) L AB: Comprehensive [place]. Panel Fast (Collection Date & Time - 10/23/2024 07:15 AM) L AB: Lipid Panel (Collection Date & Time - 10/23/2024 07:15 AM) L AB: PSA,Total (Free>4and<10) (Collection Date & Time - 10/23/2024 07:15 AM) L AB: UA ClnCatch+Micro w/rflx Cult (Collection Date & Time - 10/23/2024 07:15 AM) 4. H ypercalcemia L AB: Complete Blood Count Auto Diff (Collection Date & Time - 10/23/2024 07:15 AM) L AB: Comprehensive [place]. Panel Fast (Collection Date & Time - 10/23/2024 07:15 AM) L AB: Lipid Panel (Collection Date & Time - 10/23/2024 07:15 AM) L AB: PSA,Total (Free>4and<10) (Collection Date & Time - 10/23/2024 07:15 AM) L AB: UA ClnCatch+Micro w/rflx Cult (Collection Date & Time - 10/23/2024 07:15 AM) * Procedure Codes: 3 6415 VENIPUNCT, ROUTINE* * * The named appointment provid er may or may not be the originator of this progress note, and it is not deemed complete until electronically signed by the appointment provider. Sign off status: Pending * Provider: Heladio Lennon MD Date: 0 10/23/2024 Generated for Santosh chaves/Charan/Abdirahmanitting on: 1 08/23/2024 12:03 PM EST
--- OUTSIDE RECORDS SUMMARY | 2024-12-24 09:30 | XMS_ITS ---
Author Organization Bhaskar Lennon MD Address [address] [place], [place] [id number] Care Team Providers Care Skin Installer Name Role Phone Bhaskar Lennon Primary Care Provider Allergies No Known Allergies Results Component Value Reference Range Notes Occult Blood, Stool, Guaiac Reviewed date:12/24/2024 03:31:08 PM Interpretation:Negative Performing Lab: Notes/Report: Negative Occult Blood, Stool, Guaiac Neg TSH reflex Free T4 Reviewed date:12/25/2024 12:46:28 PM Interpretation: Performing Lab:[facility], [address] [place] [phone] Notes/Report: TSH reflex Free T4 1.57 0.32-4.0 uIU/mL REASON FOR VISIT annual visit Social History Tobacco Use: Social History Observation Description Date Details (start date - stop date) Never Smoker NA - NA Tobacco Use/Smoking Question Answer Notes Patient is a nonsmoker Additional Findings: Tobacco Non-User Fo rmer smoker, currently using no form of tobacco Alcohol Screen Question Answer Notes Did you have a drink contain ing alcohol in the past year? Yes How often did you have a dri nk containing alcohol in the past year? Monthly or less (1 point) How many drinks did you have on a typical day when you were drinking in the past year? 1 or 2 drinks (0 point) How often did you have 6 or more drinks on one occasion in the past year? Never (0 point) Points 1 Interpretation Negative Section Notes: smokes cigars on the weekend s Vital Signs Blood pressure systolic 124 mm Hg 12/25/19 25 Blood pressure diastolic 70 mm Hg 025 Height 69.50 in 12/24/2024 Weight 215 lbs 12/24/2024 BMI 31.29 kg/m2 12/24/2024 weight is up 2 pounds since 05-05-24 Encounters Encounter Location Date Provider Diagnosis Bhaskar Lennon MD [address] [place] [address] Drive [address] [place] [phone] 12/24/2024 Bhaskar Lennon Annual physical exam Z00.00 ; Hair loss L65.9 ; Pure hypercholesterolemia E78.00 ; Colon cancer screening Z12.11 and Depression screening Z13.31 Assessments Encounter Date Diagnosis (ICD Code) Assessment Notes Treatment Notes Treatment Clinical Notes Section Notes 12/24/2024 Annual physical exam (ICD-10 - Z00.00) labs reviewed and discussed with patient, order given to the patient to go to [facility] lab 12/24/2024 Hair loss (ICD-10 - L65.9) pending labs 12/24/2024 Pure hypercholesterolemia (ICD-10 - E78.00) stable, will continue current regiment 12/24/2024 Colon cancer screeni ng (ICD-10 - Z12.11) guaiac negative 12/24/2024 Depression screening (ICD-10 - Z13.31) negative screen Plan Of Treatment Treatment Notes Assessment Notes Annual physical exam labs reviewed and d iscussed with patient, order given to the patient to go to [facility] lab Hair loss pending labs Pure hypercholesterolemia stable, will c ontinue current regiment Colon cancer screening guaiac negative Depression screening negative screen Pending Test Test Name Order Date Lipid Panel 12/24/2024 Next Appt Details Follow Up: 6 Months, Reason: Provider Name:Bhaskar moise, 06/29/2025 02:00:00 PM, [address] [place] [address], Suite [facility], [place], [place], [phone], Provider Name:Bhaskar moies, 12/23/2025 07:15:00 AM, [address] [place] [address], Suite [facility], [place], [place], [phone], Provider Name:Bhaskar Alarconard ier, 12/30/2025 02:30:00 PM, [address] [facility], [address], [place], [place], [phone], Progress Notes * Willis MARISCALinDOB: 1 (44 yo M)Acc No.[id number]:12/24/2024 Progress Notes Patient: Layo BELL Provider: Heladio Lennon MD :1980 A ge:44 Y S ex:Male Date:12/24/2024 Address:[address] [place] [address], [phone] Subjective: * Chief Complaints: * A nnual visit * HPI: D epression Screening: PHQ-9 L ittle interest or pleasure in doing things N ot at all, F eeling down, depressed, or hopeless N ot at all, T rouble falling or staying asleep, or sleeping too much N ot at all, F eeling tired or having little energy N ot at all, P oor appetite or overeating N ot at all, F eeling bad about yourself or that you are a failure, or have let yourself or your family down N ot at all, T rouble concentrating on things, such as reading the newspaper or watching television N ot at all, M oving or speaking so slowly that other people could have noticed; or the opposite, being so fidgety or restless that you have been moving around a lot more than usual N ot at all, T houghts that you would be better off or of hurting yourself in some way N ot at all, T otal Score 0 . I nterpretation and Intervention D epression Screening Findings N egative, F ollow-Up for Depression : review of PHQ-9 found negative result, no follow-up needed. t. C ommunication Needs: Communication Needs D oes the patient have a hearing impairment N o, D oes the patient have a vision impairment? N o, D oes the patient have a cognition impairment? N o. S JAMISON Questions: SDOH Questions I n the past year have you been worried about losing housing? N o, I n the past year have you or any family members you live with been unable to get any of the following when it was really needed? Check all that apply: N one. S ymptom(s): patient is a 44 yo male here for annual visit with review of recent labs and follow up of chronic issues h ere for yearly evaluation/here for yearly/ hurt back a little at work last night. * ROS: G eneral/Constitutional: Change in appetite d enies. C hills d enies. F ever d enies. O phthalmologic: Blurred vision d enies. D ischarge d enies. P ain d enies. E NT: Decreased hearing d enies. S ore throat d enies.?Swollen glands d enies. E ndocrine: Cold intolerance d enies. E xcessive thirst d enies. H eat intolerance d enies. W eight loss d enies. R espiratory: Cough d enies. S hortness of breath at rest d enies. S hortness of breath with exertion d enies. W heezing d enies. C ardiovascular: Chest pain at rest d enies. C hest pain with exertion?denies. I rregular heartbeat d enies. S hortness of breath d enies. ? G astrointestinal: Abdominal pain d enies. C hange in bowel habits d enies. D iarrhea d enies. N ausea d enies. R ectal bleeding d enies. V omiting d enies . G enitourinary: Blood in urine d enies. D ifficulty urinating d enies. F requent urination d enies. M usculoskeletal: Painful joints d enies. W eakness d enies. ? S kin: Dry skin d enies. I tching d enies. D enies?Mole(s), changes in moles, new moles or any lesions of concern. D enies P hotosensitivity. R samantha d enies. N eurologic: Dizziness d enies. F ainting d enies. H eadache?denies. * Medical History: * Surgical History: * Hospitalization/Major Diagno stic Procedure: * Family History: F ather: alive 70 yrs. M other: 55 yrs. mother, Denies mental health/substance abuse family history, Denies mental health/substance abuse family history, Denies mental health/substance abuse family history, No pertinent family medical history. * Social History: T obacco Use: T obacco Use/Smoking P lyndsay is a n onsmoker, A dditional Findings: Tobacco Non-User F ormer smoker, currently using no form of tobacco. D rugs/Alcohol: A lcohol Screen D id you have a drink containing alcohol in the past year? Y es, H ow often did you have a drink containing alcohol in the past year? M onthly or less (1 point), H ow many drinks did you have on a typical day when you were drinking in the past year? 1 or 2 drinks (0 point), H ow often did you have 6 or more drinks on one occasion in the past year? N ever (0 point), P oints 1 , I nterpretation N egative. M iscellaneous: C affeine: yes, frequency:, 2-3 cups per day. Children: no. Community involvements: no. Exercise: yes, 5 days a week lifts walks half hour 3 times a week. Housing: living with relatives. Living with: family. Marital status: single. Occupation: works part-time. Pets: cats,, dogs. Travel outside of the [place]: no. s mokes cigars on the weekends. * Medications: N one * Allergies: N .K.D.A.yes[Allergies Verified] Objective: * Vitals: H t: 69.50, Wt: 215, BMI:31.29, BP:124/70, Wt-k.52. weight is up 2 pounds since 05-05-24. * P ast Orders: L ab:Complete Blood Count Auto Diff (Order Date - 10/23/2024) (Collection Date & Time - 10/23/2024 07:15 AM) Value Reference Range White Blood Count 9.0 4.8-10.8 - X10*3/uL Red Blood Count 4.37 L 4.60-5.80 - X10*6/uL Hemoglobin 14.0 14.0-18.0 - g/dl Hematocrit 40.0 L 42.0-52.0 - % Mean Corpuscular Volume 91.5 80.0-98.0 - fL Mean Corpuscular Hemoglobin 32.0 27.0-33.0 - pg Mean Corpuscular HGB Conc 35.0 31.0-36.0 - g/ dl Red Cell Distribution Width 12.3 11.0-16.0 - % Platelet Count 303 160-400 - X10*3/uL Mean Platelet Volume 9.6 9.4-12.4 - fL Neutrophils Percent Auto 51.5 45-73 - % Imm Gran Pct Auto 0.3 0.0-0.4 - % Lymphocytes Percent Auto 35.5 20-40 - % Monocytes Percent Auto 9.6 2-11 - % Eosinophils Percent Auto 2.2 0-4 - % Basophils Percent Auto 0.9 0-2 - % NRBC Pct Auto 0.0 0.0-0.2 - /100WBC Neutrophils Absolute Auto 4.6 2.0-8.3 - x10* 3/uL Imm Gran Abs Auto 0.03 0.00-0.03 - X10*3/uL Lymphocytes Absolute Auto 3.2 1.2-4.9 - X10* 3/uL Monocytes Absolute Auto 0.9 0.1-1.2 - X10*3/ uL Eosinophils Absolute Auto 0.2 0.0-0.4 - X10* 3/uL Basophils Absolute Auto 0.1 0.0-0.2 - X10*3/ uL NRBC Abs Auto 0.000 0.0-0.012 - X10*3/uL L ab:Comprehensive [place]. Panel Fast (Order Date - 10/23/2024) (Collection Date & Time - 10/23/2024 07:15 AM) Value Reference Range Sodium 138 135-145 - mmol/L Bilirubin Total 0.7 0.0-1.0 - mg/dL Aspartate Amino Transferase 38 H 5-37 - U/L Alanine Aminotransferase 64 H 0-40 - U/L Total Protein 7.6 6.5-8.0 - g/dL Albumin Level 4.5 3.5-5.0 - g/dL Alkaline Phosphatase 69 39-117 - U/L Potassium 4.0 3.3-5.1 - mmol/L Chloride 105 96-108 - mmol/L Carbon Dioxide 26 22-29 - mmol/L Anion Gap 11 L 12-20 - Blood Urea Nitrogen 16 9-16 - mg/dL Creatinine 0.79 0.5-1.4 - mg/dL Estimated Glomerular Filt Rate > 60 - Glucose Fasting 91 60-99 - mg/dL Calcium 9.7 8.4-10.2 - mg/dL L ab:Lipid Panel (Order Date - 10/23/2024) (Collection Date & Time - 10/23/2024 07:15 AM) Value Reference Range Triglycerides 130 <150 - mg/dL Cholesterol 245 H <200 - mg/dL LDL Cholesterol Calculated 172 H <100 - mg/dL HDL Cholesterol 47 >40 - mg/dL L ab:PSA,Total (Free>4and<10) (Order Date - 10/23/2024) (Collection Date & Time - 10/23/2024 07:15 AM) Value Reference Range PSA,Total (Free>4and<10) 0.46 0.00-4.00 - ng/ mL L ab:UA ClnCatch+Micro w/rflx Cult (Order Date - 10/23/2024) (Collection Date & Time - 10/23/2024 07:15 AM) Value Reference Range Color Urine Yellow - Appearance Urine Clear - PH 5.5 5.0-9.0 - Glucose Urine UA Negative Negative - mg/dL Urine Blood Negative Negative - Specific [place] - Urine 1.020 1.005-1.025 - Urine Protein Negative Neg-Trace - mg/dL Urine Ketones Negative Negative - mg/dL Nitrite Urine Negative Negative - Leukocyte Esterase Urine Negative Negative - RBC Urine 0-2 0-2 - /HPF WBC Urine 0-5 0-5 - /HPF Squamous Epithelial Cell Urine 0-2 0-2 - /HP F Bacteria Urine None Seen None Seen - Hyaline Casts Urine 0-2 0-2 - /LPF * Examination: G eneral Examination: GENERAL APPEARANCE: w ell developed, well nourished, in no acute distress. HEAD: n ormocephalic, atraumatic. EYES: p upils equal, round, reactive to light and accommodation, sclera non-icteric, abnormal with missing lateral aspect of eyebrows. EARS: n ormal. ORAL CAVITY: m ucosa moist. THROAT: c lear. NECK/THYROID: n barry supple, full range of motion, no cervical lymphadenopathy, no bruits. SKIN: w arm and dry, no suspicious lesions. HEART: r egular rate and rhythm, S1, S2 normal, no murmurs.? LUNGS: c lear to auscultation bilaterally. ABDOMEN: s oft, nontender, nondistended, bowel sounds present, normal, no organomegaly , no masses palpable. RECTAL EXAM: n ormal tone, no external hemorrhoids, no masses palpable, prostate normal, stool guaiac negative. MALE GENITOURINARY: c ircumcised, no testicular mass, testes descended bilaterally. EXTREMITIES: n o clubbing, cyanosis, or edema. NEUROLOGIC: n onfocal, motor strength normal upper and lower extremities, sensory exam intact. Assessment: * Assessment: 1. A nnual physical exam - Z00.00 (Primary) 2 . H air loss - L65.9 ? 3 . P ure hypercholesterolemia - E78.00 4 . C olon cancer screening - Z12.11 5 . D epression screening - Z13.31 Plan: * Treatment: 2. H air loss L AB: TSH reflex Free T4 (Collection Date & Time - 12/24/2024 03:11 PM) Notes: pending labs 3. P ure hypercholesterolemia L AB: Lipid Panel (Ordered for 06/25/2025) Notes: stable, will continue current regiment 4. C olon cancer screening L AB: Occult Blood, Stool, Guaiac (Collection Date & Time - 12/24/2024) N egative Value Reference Range O ccult Blood, Stool, Guaiac Neg Notes: guaiac negative??5.?Depression screening? Notes: negative screen?? * Procedure Codes: 8 2270 TEST FOR BLOOD, FECES * Preventive Medicine: Counseling: C are goal follow-up plan: C oscarnseling for abnormal BMI provided?Yes, A jhonny Normal BMI Follow-up G mark anthonying encouragement to exercise. * Follow Up: 6 Months * * Sign off status: Completed true * Provider: Heladio Lennon MD Date: 0 12/24/2024 Generated for Santosh chaves/Charan/eTkirksmitting on: 1 08/23/2024 12:03 PM EST History and Physical Notes * HPI (History of Present Illness) Category Sub-Category Detail Notes Category Not es Symptom(s) patient is a 44 yo male here for annual visit with review of recent labs and follow up of chronic issues here for yearly evaluation/here for yearly/ hurt back a little at work last night Depression Screening PHQ-9 Little inte rest or pleasure in doing things: Not at all t Feeling down, depressed, or hopeless: No t at all Trouble falling or staying asleep, or sl eeping too much: Not at all Feeling tired or having little energy: N ot at all Poor appetite or overeating: Not at all Feeling bad about yourself o r that you are a failure, or have let yourself or your family down: Not at all Trouble concentrating on thi ngs, such as reading the newspaper or watching television: Not at all Moving or speaking so slowly that other people could have noticed; or the opposite, being so fidgety or restless that you have been moving around a lot more than usual: Not at all Thoughts that you would be b gab off or of hurting yourself in some way: Not at all Total Score: 0 Interpretation and Intervention Depression Kevin chen Findings: Negative Follow-Up for Depression: : review of PH Q-9 found negative result, no follow-up needed SDOH Questions SDOH Questions In the past year have you been worried about losing housing?: No In the past year have you or any family members you live with been unable to get any of the following when it was really needed? Check all that apply:: None Communication Needs Communication Needs Does the patient have a hearing impairment: No Does the patient have a vision impairmen t?: No Does the patient have a cognition impair ment?: No Examination Category Sub-Category Detail Notes Category Not es General Examination GENERAL APPEARANCE: well dev eloped, well nourished, in no acute distress HEAD: normocephalic, atrau matic EYES: pupils equal, round, reactive to light and accommodation, sclera non- icteric, abnormal with missing lateral aspect of eyebrows EARS: normal THROAT: clear NECK/THYROID: neck supple, full ra nge of motion, no cervical lymphadenopathy, no bruits HEART: regular rate and rhy thm, S1, S2 normal, no murmurs LUNGS: clear to auscultatio n bilaterally ABDOMEN: soft, nontender, non distended, bowel sounds present, normal, no organomegaly , no masses palpable NEUROLOGIC: nonfocal, motor stre ngth normal upper and lower extremities, sensory exam intact SKIN: warm and dry, no tommy picious lesions EXTREMITIES: no clubbing, cyanosi s, or edema MALE GENITOURINARY: circumcised, no test icular mass, testes descended bilaterally RECTAL EXAM: normal tone, no exte rnal hemorrhoids, no masses palpable, prostate normal, stool guaiac negative ORAL CAVITY: mucosa moist
--- OUTSIDE RECORDS SUMMARY | 2025-06-22 02:15 | XMS_ITS ---
Author Organization Bhaskar Lennon MD Address [address] [place], [place] [id number] Care Team Providers Care Residential Mortgage Underwriter Name Role Phone Bhaskar Lennon Primary Care Provider [phone] Results Component Value Reference Range Notes Lipid Panel (Not yet review ed by provider) Interpretation: Performing Lab:[facility], [address] [place] [phone] Notes/Report: Triglycerides 148 <150 mg/dL Desirable Triglyceride: less than 150 mg/dL Borderline High Triglyceride 150-199 mg/dL High Triglyceride: 200-499 mg/dL Very High Triglyceride: greater than or equal to 5OO mg/dL Cholesterol 191 <200 mg/dL Desirable Cholesterol: less than 200 mg/dL Borderline High Cholesterol: 200-239 mg/dL High Cholesterol: greater than 239 mg/dL LDL Cholesterol Calculated 115 <100 mg/dL Desirable LDL: less than 100 mg/dL Near Optimal/Above Optimal LDL: 110-129 mg/dL Borderline High LDL: 130-159 mg/dL High LDL: 160-189 mg/dL Very High LDL: greater than or equal to 190 mg/dL HDL Cholesterol 47 >40 mg/dL Desirable HDL: greater than 40 mg/dL Note: This HDL assay may give artificially low results in patients with liver disease. REASON FOR VISIT FASTING LIPIDS Encounters Encounter Location Date Provider Diagnosis Bhaskar Lennon MD [address] [place], [place] [phone] 06/22/2025 Bhaskar Lennon Pure hypercholestero lemia E78.00 Assessments Encounter Date Diagnosis (ICD Code) Assessment Notes Treatment Notes Treatment Clinical Notes Section Notes 06/22/2025 Pure hypercholesterolemia (ICD-10 - E78.00) Plan Of Treatment Pending Test Test Name Order Date Lipid Panel 06/22/2025 Next Appt Details Provider Name:Bhaskar Ruth ier, 06/29/2025 02:00:00 PM, [address], Suite [facility], [place], [place], [phone], Provider Name:Bhaskar Ruth ier, 12/23/2025 07:15:00 AM, [address] [place] [address], [address], [place], [place], [phone], Provider Name:Bhaskar Ruth ier, 12/30/2025 02:30:00 PM, [address] [place] [address], Suite [facility], [place], [place], [phone], Progress Notes * Willis MARISCALWolfOB: 1 (45 yo M)Acc No.[id number]:06/22/2025 Progress Note Patient: Layo BELL Provider: Heladio Lennon MD :1980 A ge:45 Y S ex:Male Date:06/22/2025 Address:[address] [place], [place] [phone] Subjective: * Chief Complaints: * 1 . FASTING LIPIDS. * Medical History: Objective: * Vitals: Assessment: * Assessment: 1. P ure hypercholesterolemia - E78.00 (Primary) Plan: * Treatment: * Procedure Codes: 3 6415 VENIPUNCT, ROUTINE* * * The named appointment provid er may or may not be the originator of this progress note, and it is not deemed complete until electronically signed by the appointment provider. Sign off status: Pending * Provider: Heladio Lennon MD Date: 08/23/2024 Generated for Santosh chaves/Charan/Abdirahmanitting on: 08/23/2024 12:04 PM EST
[2025-06-22 11:17] LABS: Cholesterol 191 mg/dL (<200); HDL Cholesterol 47 mg/dL (>40); Triglycerides 148 mg/dL (<150)
--- OUTSIDE RECORDS SUMMARY | 2025-06-22 12:04 | XMS_ITS | Patient Health Record ---
Author Organization Bhaskar Lennon MD Address [address] [place], [place] [id number] Care Team Providers Care Mercantile Agent Name Role Phone Bhaskar Lennon Primary Care Provider [phone] Allergies No Known Allergies Results Component Value Reference Range Notes Complete Blood Count Auto Di ff Reviewed date:10/23/2024 04:02:07 PM Interpretation: Performing Lab:[facility], [address] [place] [phone] Notes/Report: White Blood Count 9.0 4.8-10.8 X10*3/uL [...] NRBC Abs Auto 0.000 0.0-0.012 X10*3/uL Comprehensive [place]. Panel Fa st Reviewed date:10/23/2024 03:53:53 PM Interpretation: Performing Lab:[facility], [address] [place] [phone] Notes/Report: Sodium 138 135-145 mmol/L Potassium 4.0 [...] Panel Reviewed date:10/23/2024 11:28:48 AM Interpretation: Performing Lab:[facility], [address] [place] [phone] Notes/Report: Triglycerides 130 <150 mg/dL Desirable Triglyceride: [...] (Free>4and<10) Reviewed date:10/23/2024 11:28:34 AM Interpretation: Performing Lab:[facility], [address] [place] [phone] Notes/Report: PSA,Total (Free>4and<10) 0.46 0.00-4.00 ng/mL A [...] t Reviewed date:10/23/2024 03:36:27 PM Interpretation: Performing Lab:[facility], [address] [place] [phone] Notes/Report: Urine, Clean Catch Color Urine Yellow Appearance Urine Clear PH 5.5 5.0-9.0 Glucose Urine UA Negative Negative mg/dL Urine Blood Negative Negative Specific [place] - Urine 1.020 1.005-1.025 Urine Protein Negative Neg-Trace mg/dL Urine Ketones Negative Negative mg/dL Nitrite Urine Negative Negative Leukocyte Esterase Urine Negative Negative RBC Urine 0-2 0-2 /HPF WBC Urine 0-5 0-5 /HPF Squamous Epithelial Cell Urine 0-2 0-2 /HPF Bacteria Urine None Seen None Seen Hyaline Casts Urine 0-2 0-2 /LPF Lipid Panel (Not yet reviewe d by provider) Interpretation: Performing Lab:[facility], [address] [place] [phone] Notes/Report: Triglycerides 148 <150 mg/dL Desirable Triglyceride: [...] low results in patients with liver disease. Occult Blood, Stool, Guaiac Reviewed date:12/24/2024 03:31:08 PM Interpretation:Negative Performing Lab: Notes/Report: Negative Occult Blood, Stool, Guaiac Neg TSH reflex Free T4 Reviewed date:12/25/2024 12:46:28 PM Interpretation: Performing Lab:[facility], [address] [place] [phone] Notes/Report: TSH reflex Free T4 1.57 0.32-4.0 uIU/mL Reason For Referral No Information Immunizations Vaccine Route Administration Date Status Comme nts Flu Vaccine Unknown 08/23/2014 Refused Flu Vaccine Unknown 04/18/2015 Refused Fluarix Quadrivalent Unknown 08/07/2016 Refused Fluarix Quadrivalent Unknown 08/27/2017 Refused Fluarix Quadrivalent Unknown 09/05/2018 Refused Fluarix Quadrivalent Unknown 09/07/2019 Refused Fluarix Quadrivalent Unknown 09/06/2020 Refused Fluarix Quadrivalent Unknown 04/15/2023 Refused Fluarix Quadrivalent Unknown 04/22/2023 Refused Social History Tobacco Use: Social History Observation [...] Notes: smokes cigars on the weekend s smokes cigars on the weekend s smokes cigars on the weekend s smokes cigars on the weekend s smokes cigars on the weekend s smokes cigars on the weekend s smokes cigars on the weekend s smokes cigars on the weekend s Problems Problem Type SNOMED Code ICD Code Onset Dates Problem Status W/U Status Risk Notes Problem Hypercalcemia (67907208) Hypercalcemia (E83.52) Active confirmed Problem 730608875 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 confirmed Problem 889029417 Leukocytosis, unspecified type (D72.829) Active confirmed Problem 06607332 Oropharyngeal dysphagia (R13.12) Active confirmed Problem 670081556 Pure hypercholesterolemia (E78.00) Active confirmed Problem 033120026 BMI 30.0-30.9,ad ult (Z68.30) Active confirmed Vital Signs Blood pressure diastolic 70 mm Hg 12/24/2024 luz marina ght is up 2 pounds since 05-05-24 Height 69.50 in 12/24/2024 weight is up 2 pounds since 05-05-24 Blood pressure systolic 124 mm Hg 12/24/2024 weig ht is up 2 pounds since 05-05-24 Weight 215 lbs 12/24/2024 weight is up 2 pounds since 05-05-24 BMI 31.29 kg/m2 12/24/2024 weight is up 2 pounds since 05-05-24 Encounters Encounter Location Date Provider Diagnosis Bhaskar Lennon MD [address] [place] [address] [place] [id number] 12/24/2024 Bhaskar Lennon Annual physical exam Z00.00 ; Hair loss L65.9 ; Pure hypercholesterolemia E78.00 ; Colon cancer screening Z12.11 and Depression screening Z13.31 Bhaskar Lennon MD [address] [place] [address] Drive [address] [place] [id number] 10/23/2024 Bhaskar Lennon Blood tests for rout ine general physical examination Z00.00 ; Pure hypercholesterolemia E78.00 ; Leukocytosis, unspecified type D72.829 and Hypercalcemia E83.52 Bhaskar Lennon MD [address] [place] [address] Drive [address] [place] [id number] 06/22/2025 Bhaskar Lennon Pure hypercholestero lemia E78.00 Assessments Encounter Date Diagnosis (ICD Code) Assessment Notes Treatment Notes Treatment Clinical Notes Section Notes 12/24/2024 Annual physical exam (ICD-10 - Z00.00) labs reviewed and discussed with patient, order given to the patient to go to [facility] lab 12/24/2024 Hair loss (ICD-10 - L65.9) pending labs 10/23/[address] ine general physical examination (ICD-10 - Z00.00) 06/22/2025 Pure hypercholesterolemia (ICD-10 - E78.00) 12/24/2024 Pure hypercholesterolemia (ICD-10 - E78.00) stable, will continue current regiment 10/23/2024 Pure hypercholesterolemia (ICD-10 - E78.00) 12/24/2024 Colon cancer screeni ng (ICD-10 - Z12.11) guaiac negative 10/23/2024 Leukocytosis, unspecified type (ICD-10 - D72.829) 12/24/2024 Depression screening (ICD-10 - Z13.31) negative screen 10/23/2024 Hypercalcemia (ICD-1 0 - E83.52) Plan Of Treatment Pending Test Test Name Order Date Occult Blood, Stool, Guaiac 09/11/2019 Lipid Panel 06/22/2025 Next Appt Details Provider Name:Bhaskar moise, 06/29/2025 02:00:00 PM, [address] [place] [address], [address], [place], [place], [phone], Provider Name:Bhaskar moise, 12/23/2025 07:15:00 AM, [address] [facility], [address], [place], [place], [phone], Provider Name:Bhaskarandrés Ruth ier, 12/30/2025 02:30:00 PM, [address] [facility], [address], [place], [place], [phone], Insurance Providers Payer Name Payer Address Payer Phone Subscriber Number Group Number Insured Name Patient Relationship to Insured Coverage Start Date Coverage End Date [facility] [address] [place], [place] [phone] [id number] Layo Larsen Self - patient is the insured Medical (General) History Surgical History Surgery Date(Month/Year) left neck soft tissue tumor removal 03/02 015
== END 2025-06-22 10:45 | disposition home or self-care (01) ==
LOC: HO.LNP 10:44
PROVIDERS: Visit Provider Internal Medicine
DX: E78.00 Pure hypercholesterolemia, unspecified (principal)
CPT/HCPCS: 80061